=== PATIENT | female | born 1935 | race Caucasian/White ===

== ENCOUNTER 2018-10-23 16:28 | Emergency (ER) | payer MEDICARE ==
[2018-10-23] MEDS ORDERED: Cephalexin 500 MG CAP ONE (16:49)
== END 2018-10-23 17:00 | disposition home or self-care (01) ==
LOC: MADERS 16:28
DX: L03.116 Cellulitis of left lower limb (principal)
CPT/HCPCS: 99283

== ENCOUNTER 2024-12-07 07:43 | Emergency (ER) | payer MEDICARE ==
[2024-12-07 09:00] LABS: Troponin I Less than 0.010 ng/mL (< 0.028)
[2024-12-07 09:03] LABS: Hematocrit 32.6 % (36.0-47.0); Hemoglobin 10.6 g/dL (12.0-16.0); Mean Corpuscular HGB CONC 32.6 g/dL (32.0-36.0); Mean Corpuscular Hemoglobin 30.3 pg (27.0-31.0); Mean Corpuscular Volume 92.9 fl (78.0-98.0); Mean Platelet Volume 7.8 fL (7.4-10.4); Platelet Count 152 10x3/uL (130-400); RBC Distribution Width 11.5 % (11.5-14.5); White Blood Cell (WBC) Count 5.8 10x3/uL (4.8-10.8)
[2024-12-07 09:08] LABS: Band 1 % (5-11); Eosinophils 1 % (0-10); Lymphocytes 15 % (21-51); MDiff Complete? YES; Manual Diff?? YES; Monocytes 5 % (0-10); Neutrophil 78 % (42-75); RBC Morph Comment Within Normal Limits
[2024-12-07 09:09] LABS: Platelet Adequacy Comment Appears Adequate
[2024-12-07 09:14] LABS: ALT (SGPT) 19 U/L (8-55); AST (SGOT) 23 U/L (5-34); Albumin 3.8 g/dL (3.4-4.8); Alkaline Phosphatase 64 U/L (40-110); Anion Gap 13 mmol/L (10-20); BUN (Urea Nitrogen) 18 mg/dL (9.8-20.1); Bilirubin, Total 0.5 mg/dL (0.2-1.2); Calc. Creatinine Clearance 0 mL/min (70-130); Calcium 8.5 mg/dL (7.8-10.44); Carbon Dioxide 22 mmol/L (23-31); Chloride 95 mmol/L (98-107); Estimated GFR 82; Globulin 2.7 g/dL (2.4-3.5); Glucose 129 mg/dL (83-110); Magnesium 1.8 mg/dL (1.6-2.6); Potassium 3.8 mmol/L (3.5-5.1); Protein, Total 6.5 g/dL (5.8-8.1); Sodium 126 mmol/L (136-145)
[2024-12-07] MEDS ORDERED: Sodium Chloride 0.9% 500 ML ONE (09:45)
[2024-12-07 10:35] LABS: Bilirubin Negative (Negative); Blood, Urine Negative (Negative); Glucose, Urine (Dipstick) Negative (Negative); Ketone, Urine 15 mg/dL (Negative); Leukocyte Trace (Negative); Nitrite Negative (Negative); Protein, Urine (Dipstick) Negative (Neg-Trace); Specific Gravity, Urine 1.015 (1.005-1.030); Urobilinogen 0.2 mg/dL (Less than 2)
[2024-12-07 10:37] LABS: Bacteria/HPF Rare-Few HPF (None Seen); CAUTI Indications for Culture Dysuria,urgency,freq; Clarity Hazy (Clear); RBC/HPF 0-3 HPF (0-3); Squamous Epithelial 0-3 HPF (0-3)
[2024-12-07 10:38] LABS: Urine Culture Reflex No No
[2024-12-07 12:23] LABS: Anion Gap 12 mmol/L (10-20); BUN (Urea Nitrogen) 15 mg/dL (9.8-20.1); Calc. Creatinine Clearance 0 mL/min (70-130); Calcium 8.4 mg/dL (7.8-10.44); Carbon Dioxide 22 mmol/L (23-31); Chloride 98 mmol/L (98-107); Estimated GFR 84; Glucose 118 mg/dL (83-110); Potassium 4.3 mmol/L (3.5-5.1); Sodium 128 mmol/L (136-145)
[2024-12-07 13:00] LABS: Troponin I 0.022 ng/mL (< 0.028)
== END 2024-12-07 13:17 | disposition home or self-care (01) ==
LOC: MADERS 07:43
DX: R55 Syncope and collapse (principal); S60.222A Contusion of left hand, initial encounter; S70.01XA Contusion of right hip, initial encounter; E87.1 Hypo-osmolality and hyponatremia; W01.10XA Fall on same level from slipping, tripping and stumbling with subsequent striking against unspecified object, initial encounter; Y93.89 Activity, other specified
CPT/HCPCS: 70450; 71045; 73110; 73502; 80048; 81001; 83735; 84484 ×2; 87428; 93005; 96360; 99285; J7030; 80053; 84443; 85025